=== PATIENT | female | born 1945 | race Hispanic/Latino ===

== ENCOUNTER 2017-06-25 11:43 | Inpatient (IN) | payer MEDICARE ==
[2017-06-25 12:31] LABS: Basophils % (Auto) 0.5 % (0.0-1.8); Eosinophils # (Auto) 0.2 K/mm3 (0.0-0.4); Eosinophils % (Auto) 1.7 % (0.0-4.3); Hemoglobin 17.1 gm/dl (10.1-14.3); Lymphocytes # (Auto) 0.9 K/mm3 (1.2-5.4); Lymphocytes % (Auto) 9.6 % (13.4-35.0); Mean Corpuscular HGB Conc 32 % (30-34); Mean Corpuscular Hemoglobin 35 pg (28-32); Mean Corpuscular Volume 107 fl (79-97); Monocytes # (Auto) 0.9 K/mm3 (0.0-0.8); Monocytes % (Auto) 10.1 % (0.0-7.3); Red Blood Count 4.94 M/mm3 (3.65-5.03); Red Cell Distribution Width 14.9 % (13.2-15.2)
[2017-06-25] MEDS ORDERED: DUONEB *Not for PRN Use IH ONE (12:36)
[2017-06-25] MEDS ORDERED: NACL 0.9% 1000 ML 1,000 ML IV ONE (12:37)
[2017-06-25] MEDS ORDERED: MAGNESIUM SULFATE 2GM/50ML 2 GM/50 ML BAG IV ONE (12:37)
[2017-06-25 13:06] LABS: Platelet Count 80 K/mm3 (140-440)
--- NOTE | 2017-06-25 13:13 | XRay Report ---
PORTABLE CHEST: SOB. An AP portable view of the chest demonstrates a normal cardiac contour considering the limits of this technique. The lungs are clear with no evidence of infiltrate, fluid or failure. IMPRESSION: Normal portable chest.
[2017-06-25 13:21] LABS: INR 1.06 (0.87-1.13)
[2017-06-25 13:22] LABS: Partial Thromboplastin Time 28.5 Sec. (24.2-36.6)
[2017-06-25 13:24] LABS: BUN/Creatinine Ratio 18; Blood Urea Nitrogen 9 mg/dL (7-17); Calcium 9.2 mg/dL (8.4-10.2); Hemolysis Index 31
[2017-06-25] MEDS ORDERED: LEVAQUIN 750MG/150ML 750 MG/150 ML BAG IV ONE (13:28)
[2017-06-25] MEDS ORDERED: NITRO-BID 2% TP ONE (13:41)
[2017-06-25] MEDS ORDERED: ROCEPHIN/NS 1 GM/50 ML 1 GM/50 ML BAG IV ONE (13:42)
--- NOTE | 2017-06-25 13:42 | Emergency Department Report ---
ED General Adult HPI - General Chief complaint: Dyspnea/Respdistress Stated complaint: PERICO/AMS Time Seen by Provider: 06/25/17 12:31 Source: patient, EMS Mode of arrival: Stretcher Limitations: No Limitations - History of Present Illness Initial comments: Patient arrives for evaluation of respiratory distress. She has a history of COPD and has had a previous admission at this facility in November 2016. She is a poor historian. However she is denying chest pain she is denying a history of heart failure I am not entirely certain but I think she is denying history of fever or chills. He has a history of a toxic encephalopathy and COPD the exacerbation on previous admissions with UTI. This may reflect this may be a similar presentation. As far as I can tell she is not on home O2. She does use home that treatments she is transported to this facility via EMS. She received Solu-Medrol and a neb in route but not magnesium sulfate. -: Gradual, unknown (unknown on a do not have a good history on this) Severity scale (0 -10): 0 Associated Symptoms: denies other symptoms Treatments Prior to Arrival: none - Related Data Previous Rx's Medication Instructions Recorded Last Taken Type Levofloxacin [Levaquin TAB] 500 mg PO QDAY #5 tablet 08/31/16 Unknown Rx Prednisone [predniSONE 10 mg 10 mg PO .TAPER #1 tab.ds.pk 08/31/16 Unknown Rx (6-Day Pack, 21 Tabs)] Allergies Allergy/AdvReac Type Severity Reaction Status Date / Time hydrocodone AdvReac Rash Verified 12/16/13 10:59 ED Review of Systems ROS: Stated complaint: PERICO/AMS Other details as noted in HPI Comment: Unobtainable due to pts medical conditions ED Past Medical Hx - Past Medical History Hx Hypertension: Yes Hx COPD: Yes Additional medical history: 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 Anemia - Surgical History Hx Cholecystectomy: Yes Additional Surgical History: Hysterectomy, nerve stimulator - Social History Smoking Status: Current Every Day Smoker Substance Use Type: None - Medications Home Medications: Home Medications Medication Instructions Recorded Confirmed Last Taken Type Levofloxacin [Levaquin TAB] 500 mg PO QDAY #5 tablet 08/31/16 Unknown Rx Prednisone [predniSONE 10 mg 10 mg PO .TAPER #1 tab.ds.pk 08/31/16 Unknown Rx (6-Day Pack, 21 Tabs)] ED Physical Exam - General Limitations: Physical Limitation General appearance: lethargic - Head Head exam: Present: atraumatic, normocephalic - Eye Eye exam: Absent: scleral icterus - ENT ENT exam: Present: mucous membranes dry - Neck Neck exam: Present: normal inspection. Absent: tenderness, meningismus - Respiratory Respiratory exam: Present: rhonchi, accessory muscle use - Cardiovascular Cardiovascular Exam: Present: regular rate, normal rhythm. Absent: systolic murmur, diastolic murmur, rubs, gallop - GI/Abdominal GI/Abdominal exam: Present: soft, normal bowel sounds. Absent: distended, tenderness, guarding, rebound, rigid - Extremities Exam Extremities exam: Present: normal inspection, normal capillary refill. Absent: tenderness, joint swelling, calf tenderness - Back Exam Back exam: Present: normal inspection - Neurological Exam Neurological exam: Present: other (no evident focal deficit) - Psychiatric Psychiatric exam: Present: anxious, flat affect - Skin Skin exam: Present: warm, dry, intact, other (somewhat sallow). Absent: rash ED Course Vital Signs 06/25/17 06/25/17 06/25/17 11:49 12:27 12:47 Temperature 98.5 F Pulse Rate 107 H Pulse Rate [ 84 Bilateral] Respiratory 47 H Rate Respiratory 16 Rate [Bilateral ] Blood Pressure 194/72 [Left] O2 Sat by Pulse 98 98 Oximetry 06/25/17 06/25/17 13:07 13:46 Temperature Pulse Rate 92 H Pulse Rate [ 82 Bilateral] Respiratory 20 Rate Respiratory 14 Rate [Bilateral ] Blood Pressure [Left] O2 Sat by Pulse 96 Oximetry - Reevaluation(s) Reevaluation #1: The patient had an inadequate response to nebulized treatment. An arterial blood gas showed hypercapnia. On reexamination, the patient was still wheezing. She still had increased work of breathing. I decided to place her on BiPAP. At this time she does not require intubation. However, she will require close observation. In addition finally her lactic acid level has come back and it is elevated. I had already given her empiric antibiotics i.e. Levaquin and ceftriaxone. She's had a previous UTI. However clinically she sounds like she possibly has pneumonia. Urinalysis is Pending. She will need a repeat blood gas and I presume ICU admission. 06/25/17 14:06 Reevaluation #2: Patient's respiratory distress seems disproportionate to her x-ray finding. She does have an elevated BNP and possibly cardiomyopathy however we have ordered a CTA to rule out pulmonary embolism and further delineate her pulmonary and cardiovascular status. 06/25/17 14:13 ED Medical Decision Making - Lab Data Result diagrams: 06/25/17 12:10 06/25/17 12:45 Laboratory Results - last 24 hr 06/25/17 06/25/17 06/25/17 12:10 12:45 12:45 WBC 9.0 RBC 4.94 Hgb 17.1 H Hct 53.0 H MCV 107 H MCH 35 H MCHC 32 RDW 14.9 Plt Count 80 L Lymph % (Auto) 9.6 L [place] % (Auto) 10.1 H Eos % (Auto) 1.7 Baso % (Auto) 0.5 Lymph # 0.9 L [place] # 0.9 H Eos # 0.2 Baso # 0.0 Seg Neutrophils % 78.1 H Seg Neutrophils # 7.0 PT 14.3 INR 1.06 APTT 28.5 POC ABG pH POC ABG pCO2 POC ABG pO2 POC ABG HCO3 POC ABG Total CO2 POC ABG O2 Sat POC ABG Base Excess FiO2 Sodium 140 Potassium 3.1 L Chloride 94.6 L Carbon Dioxide 27 Anion Gap 22 BUN 9 Creatinine 0.5 L Estimated GFR > 60 BUN/Creatinine Ratio 18 Glucose 117 H Calcium 9.2 06/25/17 12:59 WBC RBC Hgb Hct MCV MCH MCHC RDW Plt Count Lymph % (Auto) [place] % (Auto) Eos % (Auto) Baso % (Auto) Lymph # [place] # Eos # Baso # Seg Neutrophils % Seg Neutrophils # PT INR APTT POC ABG pH 7.391 POC ABG pCO2 49.3 H POC ABG pO2 57 L POC ABG HCO3 29.9 POC ABG Total CO2 31 POC ABG O2 Sat 88 POC ABG Base Excess 5 FiO2 32 Sodium Potassium Chloride Carbon Dioxide Anion Gap BUN Creatinine Estimated GFR BUN/Creatinine Ratio Glucose Calcium - EKG Data -: EKG Interpreted by Me EKG shows normal: sinus rhythm Rate: normal - EKG Data Interpretation: other (there is a lot of baseline waiver. However there is probably some diffuse ST depression. Left axis deviation/possible LAFB) - Radiology Data Radiology results: report reviewed interpreted by me: Chest x-ray no acute process, no cardiomegaly no signs of CHF no obvious infiltrate. Critical Care Time: Yes Critical care time in (mins) excluding proc time.: 60 Critical care attestation.: If time is entered above; I have spent that time in minutes in the direct care of this critically ill patient, excluding procedure time. ED Disposition Clinical Impression: Elevated lactic acid level, Hypokalemia, Elevated brain natriuretic peptide ( BNP) level Respiratory failure Qualifiers: Chronicity: acute on chronic Respiratory failure complication: hypercapnia Qualified Code(s): J96.22 - Acute and chronic respiratory failure with hypercapnia Disposition: DC09 OP ADMIT IP TO THIS HOSP Is pt being admited?: Yes Does the pt Need Aspirin: Yes Condition: Stable Referrals: MARNIE BENITEZ MD [Primary Care Provider] - 3-5 Days Time of Disposition: 14:14
--- NOTE | 2017-06-25 13:52 | History and Physical Report ---
History of Present Illness Chief complaint: Mom cant breathe and she's staring off into space History of present illness: 72 YO Female with COPD, Chronic Respiratory Failure on Home Oxygen, HTN, Nicotine Dependance presents to ED for evaluation. Pt is lethargic and confused and unable to give history, but history given by son who is at bedside during exam and interview. As per son, Pt has experienced confusion and shortness over kat[place] past 2 days with worsening symptoms over the past 8 hours. Pt has become more confused and unable to conduct activities of daily living. No reports of fever, chills, CP, Palpitations, NVD, Trauma, Seizures, Vertigo, loss of bowel/ bladder continence, sore throat, ill contacts, syncope, leg/calf swelling, recent prolonged car/air travel. Pt acknowledges daily continued smoking. Pt seen and evaluated in ED and found to have evidence of sepsis, and acute respiratory failure, and treated with sepsis protocol, and NIPPV. Pt admitted to ICU. Past History Past Medical History: COPD, other (respiratory faijlure, ) Past Surgical History: cholecystectomy, hysterectomy, Other (Nerve stimulator placement) Social history: , smoking Family history: hypertension Medications and Allergies Allergies Allergy/AdvReac Type Severity Reaction Status Date / Time hydrocodone AdvReac Rash Verified 12/16/13 10:59 Home Medications Medication Instructions Recorded Confirmed Last Taken Type Levofloxacin [Levaquin TAB] 500 mg PO QDAY #5 tablet 08/31/16 Unknown Rx Prednisone [predniSONE 10 mg 10 mg PO .TAPER #1 tab.ds.pk 08/31/16 Unknown Rx (6-Day Pack, 21 Tabs)] Active Meds: Active Medications Sodium Chloride (Nacl 0.9% 1000 Ml) 1,000 mls @ 125 mls/hr IV ONCE ONE Stop: 06/25/17 20:36 Last Admin: 06/25/17 12:55 Dose: 125 mls/hr Levofloxacin/Dextrose (Levaquin 750mg/150ml) 750 mg in 150 mls @ 100 mls/hr IV ONCE ONE PRN Reason: Protocol Stop: 06/25/17 14:57 Ceftriaxone Sodium (Rocephin/Ns 1 Gm/50 Ml) 1 gm in 50 mls @ 100 mls/hr IV ONCE ONE PRN Reason: Protocol Stop: 06/25/17 14:11 Review of Systems ROS unobtainable: due to mental status Exam - Constitutional Vitals: Temp Pulse Resp BP Pulse Ox 98.5 F 92 H 20 194/72 96 06/25/17 12:27 06/25/17 13:46 06/25/17 13:46 06/25/17 12:27 06/25/17 13:46 General appearance: Present: mild distress - EENT Eyes: Present: PERRL ENT: hearing intact - Neck Neck: Present: supple - Respiratory Respiratory effort: labored Respiratory: bilateral: diminished, rhonchi - Cardiovascular Rhythm: regular Heart Sounds: Present: S1 & S2 - Extremities Extremities: pulses symmetrical, No edema Peripheral Pulses: within normal limits - Abdominal General gastrointestinal: Present: soft, non-tender, non-distended, normal bowel sounds Female genitourinary: Present: normal - Integumentary Integumentary: Present: clear, dry, clammy, decreased turgor - Musculoskeletal Musculoskeletal: generalized weakness - Psychiatric Psychiatric: no intact judgment & insight, no memory intact - Neurologic Neurologic: no gait normal Results - Labs CBC & Chem 7: 06/25/17 12:10 06/25/17 12:45 Labs: Abnormal lab results 06/25/17 06/25/17 06/25/17 Range/Units 12:10 12:45 12:59 Hgb 17.1 H (10.1-14.3) gm/dl Hct 53.0 H (30.3-42.9) % MCV 107 H (79-97) fl MCH 35 H (28-32) pg Plt Count 80 L (140-440) K/mm3 Lymph % (Auto) 9.6 L (13.4-35.0) % [place] % (Auto) 10.1 H (0.0-7.3) % Lymph # 0.9 L (1.2-5.4) K/mm3 [place] # 0.9 H (0.0-0.8) K/mm3 Seg Neutrophils % 78.1 H (40.0-70.0) % POC ABG pCO2 49.3 H (35-45) POC ABG pO2 57 L (80-105) Potassium 3.1 L (3.6-5.0) mmol/L Chloride 94.6 L (98-107) mmol/L Creatinine 0.5 L (0.7-1.2) mg/dL Glucose 117 H (65-100) mg/dL Lactic Acid (0.7-2.0) mmol/L 06/25/17 Range/Units 13:04 Hgb (10.1-14.3) gm/dl Hct (30.3-42.9) % MCV (79-97) fl MCH (28-32) pg Plt Count (140-440) K/mm3 Lymph % (Auto) (13.4-35.0) % [place] % (Auto) (0.0-7.3) % Lymph # (1.2-5.4) K/mm3 [place] # (0.0-0.8) K/mm3 Seg Neutrophils % (40.0-70.0) % POC ABG pCO2 (35-45) POC ABG pO2 (80-105) Potassium (3.6-5.0) mmol/L Chloride (98-107) mmol/L Creatinine (0.7-1.2) mg/dL Glucose (65-100) mg/dL Lactic Acid 3.60 H* (0.7-2.0) mmol/L Assessment and Plan - Patient Problems (1) Sepsis Current Visit: Yes Status: Acute Qualifiers: Sepsis type: sepsis due to unspecified organism Qualified Code(s): A41.9 - Sepsis, unspecified organism Plan to address problem: IV Abx, IVF, Monitor uop q shift, blood cultures, Urinalysis, serial lactic acid , Chest X ray, supplemental oxygen, The high probability of a clinically significant, sudden or life threatening deterioration of the [Pulmonary, Cardiac, Endocrine] system(s) required my full and direct attention, intervention and personal management. The aggregate critical care time was [65] minutes. This time is in addition to time spent performing reported procedures but includes the following: [x] Data Review and interpretation [x] Patient assessment and monitoring of vital signs [x] Documentation [x] Medication orders and management (2) Acute respiratory failure Current Visit: No Status: Acute Qualifiers: Respiratory failure complication: hypoxia Qualified Code(s): J96.01 - Acute respiratory failure with hypoxia Plan to address problem: Supplemental oxygen, nebs, aspiration precautions, NIPPV, ABG, incentive spirometry, supportive care, IV abx, steroid therapy, CTA Chest, (3) Encephalopathy Current Visit: Yes Status: Acute Plan to address problem: CT head, neuro checks, treat respiratory failure, supplemental oxygen, Aspiratio precautions. (4) Lactic acidosis Current Visit: Yes Status: Acute Plan to address problem: IVF resuscitation, serial lactic acid, (5) Pneumonia Current Visit: Yes Status: Suspected Qualifiers: Laterality: left Lung location: lower lobe of lung Plan to address problem: IV abx, Supplemental oxygen, nebs, blood cultures, incentive spirometry, (6) DVT prophylaxis Current Visit: No Status: Acute
[2017-06-25] MEDS ORDERED: cefTRIAXone 1 GM in NACL 0.9% 20 ML IV ONE (14:00)
[2017-06-25] MEDS ORDERED: K-DUR PO ONE (14:00)
[2017-06-25 14:02] LABS: Creatine Kinase MB 2.8 ng/mL (0.0-4.0)
[2017-06-25 14:03] LABS: Albumin 3.9 g/dL (3.9-5); Bilirubin,Direct 0.3 mg/dL (0-0.2); Magnesium 1.9 mg/dL (1.7-2.3)
[2017-06-25] MEDS ORDERED: NACL 0.9% 1000 ML IV ONE (14:15)
[2017-06-25] MEDS ORDERED: DULCOLAX PR PRN (14:15)
[2017-06-25] MEDS ORDERED: ALUM-MAG HYDROX-SIMETH 200-200-20MG/5ML PO PRN (14:15)
[2017-06-25] MEDS ORDERED: BABY ASPIRIN PO ONE (14:16)
[2017-06-25] MEDS ORDERED: MILK OF MAGNESIA PO PRN (15:00)
--- NOTE | 2017-06-25 15:53 | Cat Scan Report ---
CTA chest: Respiratory distress. Pulmonary embolus protocol utilized. During IV contrast administration transverse images were obtained through the chest with coronal and sagittal reformatted images. A 3-D MIP image is also included. During administration of contrast extravasation into the arm occurred at the end of the injection. Our technologist estimated 30 cc. Patient was treated appropriately and the family given instructions for followup. Comparison exam is made to one in November 2013. The pulmonary arteries, veins, cardiac chambers, and thoracic aorta are relatively well opacified. No filling defects are identified in the pulmonary vessels. The central arterial structures are well opacified and the more peripheral structures are inconsistently opacified but there no filling defects suspicious for thrombus. The unopacified structures are unremarkable with normal contour and size of the thoracic aorta. There is significant mural calcification of the aorta. Several small nonspecific lymph nodes are present in the pretracheal and carinal regions. On the pulmonary windows there is stable scarring in the right apex. Small stable nodule is noted in the right apex. There is a 6.6 mm smooth, noncalcified pleural-based nodule is also posteriorly in the right upper lobe which is not previously identified however other nodules in a similar area are no longer present. There is a stable linear scar adjacent to the right middle fissure. A pleural-based lobulated density is also noted posteriorly on the left. Similar findings were present in multiple areas on the previous study but have resolved. Impressions: 1. No pulmonary embolus identified. 2. Bilateral small pleural based densities. In view similar findings on prior CT which have resolved these most likely are also benign. Followup CT in 4-6 months at your discretion.
[2017-06-25 16:33] LABS: Bilirubin,Urine NEG (Negative); Blood,Urine MOD (Negative); Color,Urine Yellow (Yellow); Mucus,Urine FEW /HPF; Nitrite,Urine NEG (Negative)
--- NOTE | 2017-06-25 16:38 | Consultation ---
History of Present Illness Consult date: 06/25/17 Requesting physician: MIKEY LAINEZ Reason for consult: other (Acute Hypoxemic Respiratory Failure) History of present illness: PULMONARY/CCM CONSULT NOTE (Full dictation # [id number]) Please see dictated notes for full details Past History Past Medical History: COPD, other (respiratory faijlure, ) Past Surgical History: cholecystectomy, hysterectomy, Other (Nerve stimulator placement) Social history: , smoking Family history: hypertension Medications and Allergies Allergies Allergy/AdvReac Type Severity Reaction Status Date / Time hydrocodone AdvReac Rash Verified 12/16/13 10:59 Home Medications Medication Instructions Recorded Confirmed Last Taken Type Levofloxacin [Levaquin TAB] 500 mg PO QDAY #5 tablet 08/31/16 Unknown Rx Prednisone [predniSONE 10 mg 10 mg PO .TAPER #1 tab.ds.pk 08/31/16 1 Day Ago Rx (6-Day Pack, 21 Tabs)] ~06/25/17 40 Simvastatin 40 mg PO DAILY 06/25/17 06/26/17 1 Day Ago History ~06/25/17 40 Losartan 25 mg PO DAILY 06/26/17 06/26/17 1 Day Ago History ~06/25/17 25mg Oxycodone HCl [oxyCODONE TAB] 20 mg PO Q4HR PRN 06/26/17 06/26/17 1 Day Ago History ~06/25/17 20 Xanax TAB 1 mg PO Q6HR 06/26/17 06/26/17 1 Day Ago History ~06/25/17 1mg cloNIDine [Catapres] 0.1 mg PO BID 06/26/17 06/26/17 1 Day Ago History ~06/25/17 0.1 Active Meds: Active Medications Al Hydrox/Mg Hydrox/Simethicone (Alum-Mag Hydrox-Simeth [phone]/5ml) 30 ml PO Q4H PRN PRN Reason: Indigestion Bisacodyl (Dulcolax) 10 mg [place] QDAY PRN PRN Reason: constipation unrelieved by MOM Sodium Chloride (Nacl 0.9% 1000 Ml) 1,000 mls @ 125 mls/hr IV ONCE ONE Stop: 06/25/17 20:36 Last Admin: 06/25/17 12:55 Dose: 125 mls/hr Azithromycin 500 mg/ Sodium (Chloride) 250 mls @ 250 mls/hr IV Q24HR LOLITA Ceftriaxone Sodium (Rocephin/Ns 2 Gm/100 Ml) 2 gm in 100 mls @ 200 mls/hr IV Q24HR LOLITA PRN Reason: Protocol Magnesium Hydroxide (Milk Of Magnesia) 30 ml PO Q4H PRN PRN Reason: Constipation Methylprednisolone Sodium Succinate (Solu-Medrol) 40 mg IV Q12HR [facility] Physical Examination Vital signs: Vital Signs Pulse Ox 98 06/25/17 11:49 Results - Laboratory Findings CBC and BMP: 06/25/17 12:10 06/25/17 12:45 ABG POC ABG pH 7.391 (7.35-7.45) 06/25/17 12:59 POC ABG pCO2 49.3 (35-45) H 06/25/17 12:59 POC ABG pO2 57 (80-105) L 06/25/17 12:59 POC ABG HCO3 29.9 06/25/17 12:59 POC ABG Total CO2 31 06/25/17 12:59 POC ABG O2 Sat 88 06/25/17 12:59 PT/INR, D-dimer PT 14.3 Sec. (12.2-14.9) 06/25/17 12:45 INR 1.06 (0.87-1.13) 06/25/17 12:45 Abnormal lab findings: Abnormal Labs 06/25/17 06/25/17 06/25/17 12:10 12:45 12:45 Hgb 17.1 H Hct 53.0 H MCV 107 H MCH 35 H Plt Count 80 L Lymph % (Auto) 9.6 L [place] % (Auto) 10.1 H Lymph # 0.9 L [place] # 0.9 H Seg Neutrophils % 78.1 H POC ABG pCO2 POC ABG pO2 Potassium 3.1 L Chloride 94.6 L Creatinine 0.5 L Glucose 117 H Lactic Acid Direct Bilirubin 0.3 H NT-Pro-B Natriuret Pep 3012 H 06/25/17 06/25/17 12:59 13:04 Hgb Hct MCV MCH Plt Count Lymph % (Auto) [place] % (Auto) Lymph # [place] # Seg Neutrophils % POC ABG pCO2 49.3 H POC ABG pO2 57 L Potassium Chloride Creatinine Glucose Lactic Acid 3.60 H* Direct Bilirubin NT-Pro-B Natriuret Pep
[2017-06-25] MEDS ORDERED: HABITROL TD ONE (23:27)
[2017-06-25] MEDS: ROXICODONE PO PRN (23:30)
[2017-06-25] MEDS: XANAX PO PRN (23:40)
[2017-06-26] MEDS ORDERED: NACL 0.9% 1000 ML 1,000 ML IV SCH (02:00)
[2017-06-26] MEDS: ROXICODONE PO PRN ×2 (09:21→16:46)
[2017-06-26] MEDS: PEPCID IV SCH (09:22)
[2017-06-26] MEDS ORDERED: ROCEPHIN/NS 2 GM/100 ML 2 GM/100 ML BAG IV SCH (10:00)
[2017-06-26] MEDS ORDERED: DUONEB *Not for PRN Use IH ONE (10:15)
[2017-06-26] MEDS: PULMICORT IH SCH ×2 (10:19→21:15)
[2017-06-26] MEDS: ZITHROMAX 500 MG in NACL 0.9% 250ML 250 ML IV SCH (11:20)
[2017-06-26 11:23] LABS: Hepatitis A Antibody IgM Non-Reactive (NonReactive); Hepatitis B Core IgM Non-Reactive (NonReactive); Hepatitis B Surface Antigen Non-Reactive (Negative); Hepatitis C Virus Antibody Non-Reactive (NonReactive)
[2017-06-26] MEDS ORDERED: Fluarix Quad 2017-2018(36 MOS+ IM ONE (12:00)
--- NOTE | 2017-06-26 12:30 | Progress Note ---
Assessment and Plan 72 YO Female with COPD, Chronic Respiratory Failure on Home Oxygen, Hypertension, Nicotine Dependance presents to ED for evaluation. Patient is lethargic and confused and unable to give history, but history given by son who is at bedside during exam and interview. As per son, Patient has experienced confusion and shortness over the past 2 days with worsening symptoms over the past 8 hours. Pt has become more confused and unable to conduct activities of daily living. No reports of fever, chills, CP, Palpitations, nausea, vomiting, diarrhea, Trauma, Seizures, Vertigo, loss of bowel/bladder continence, sore throat,sick contacts, syncope, leg/calf swelling, recent prolonged car/air travel. Patient acknowledges daily continued smoking. Patient seen and evaluated in ED and found to have evidence of sepsis, and acute respiratory failure, and treated with sepsis protocol, and NIPPV. Patient admitted to ICU. Patient was in hospice care Sepsis Acute on chronic hypoxemic respiratory failure COPD with acute exacerbation Tobacco abuse disorder Polycythemia probably secondary to chronic hypoxemia Metabolic alkalosis -Continue with antibiotics to complete course -NIPPV qhs and PRN -Supplemental oxygen to keep oxygen saturations>88%, oxygen restrictive strategies -Nicotine withdrawal precautions -VTE prophylaxis -Continue with bronchodilators -Steroids -Smoking cessation counselling at the bedside -Nutritional support -PT/OT/mobility -Discontinue rachel catheter Patient and her son were updated at the bedside re care plan - Subjective Date of service: 06/26/17 Interval history: Seen and examined. Vitals, labs, medications, chart reviewed. Doing better this morning. Wants to go home. Her son who lives with her is at the bedside. Denies any chills, no fevers, no abdominal pain, no nausea or vomiting. Has ongoing cough and baseline shortness of breath. Discussed in interdisciplinary rounds Objective Vital Signs - 12hr 06/26/17 06/26/17 06/26/17 00:40 00:50 00:51 Temperature Pulse Rate 96 H 102 H Pulse Rate [ Bilateral] Pulse Rate [ Throughout] Respiratory 34 H 22 24 Rate Respiratory Rate [Bilateral ] Respiratory Rate [ Throughout] Blood Pressure 200/76 200/76 O2 Sat by Pulse 95 92 97 Oximetry 06/26/17 06/26/17 06/26/17 01:00 01:10 01:20 Temperature Pulse Rate 107 H 101 H 67 Pulse Rate [ Bilateral] Pulse Rate [ Throughout] Respiratory 38 H 32 H 24 Rate Respiratory Rate [Bilateral ] Respiratory Rate [ Throughout] Blood Pressure 200/76 192/78 192/78 O2 Sat by Pulse 83 L 94 97 Oximetry 06/26/17 06/26/17 06/26/17 01:30 01:40 01:50 Temperature Pulse Rate 85 79 68 Pulse Rate [ Bilateral] Pulse Rate [ Throughout] Respiratory 24 25 H 25 H Rate Respiratory Rate [Bilateral ] Respiratory Rate [ Throughout] Blood Pressure 192/78 192/78 192/78 O2 Sat by Pulse 97 97 96 Oximetry 06/26/17 06/26/17 06/26/17 02:00 02:10 02:20 Temperature Pulse Rate 101 H 108 H 70 Pulse Rate [ Bilateral] Pulse Rate [ Throughout] Respiratory 36 H 38 H 24 Rate Respiratory Rate [Bilateral ] Respiratory Rate [ Throughout] Blood Pressure 192/78 164/85 164/85 O2 Sat by Pulse 96 97 96 Oximetry 06/26/17 06/26/17 06/26/17 02:30 02:40 02:50 Temperature Pulse Rate 102 H 102 H 109 H Pulse Rate [ Bilateral] Pulse Rate [ Throughout] Respiratory 27 H 27 H 36 H Rate Respiratory Rate [Bilateral ] Respiratory Rate [ Throughout] Blood Pressure 164/85 164/85 164/85 O2 Sat by Pulse 96 97 97 Oximetry 06/26/17 06/26/17 06/26/17 03:00 03:10 03:20 Temperature Pulse Rate 107 H 107 H 92 H Pulse Rate [ Bilateral] Pulse Rate [ Throughout] Respiratory 28 H 26 H 27 H Rate Respiratory Rate [Bilateral ] Respiratory Rate [ Throughout] Blood Pressure 164/85 154/88 154/88 O2 Sat by Pulse 94 96 96 Oximetry 06/26/17 06/26/17 06/26/17 03:30 03:40 03:50 Temperature Pulse Rate 97 H 120 H 115 H Pulse Rate [ Bilateral] Pulse Rate [ Throughout] Respiratory 25 H 34 H 34 H Rate Respiratory Rate [Bilateral ] Respiratory Rate [ Throughout] Blood Pressure 154/88 154/88 154/88 O2 Sat by Pulse 96 94 95 Oximetry 06/26/17 06/26/17 06/26/17 04:00 04:10 04:20 Temperature 98.6 F Pulse Rate 110 H 110 H 101 H Pulse Rate [ Bilateral] Pulse Rate [ Throughout] Respiratory 28 H 16 24 Rate Respiratory Rate [Bilateral ] Respiratory Rate [ Throughout] Blood Pressure 154/88 151/85 151/85 O2 Sat by Pulse 96 96 96 Oximetry 06/26/17 06/26/17 06/26/17 04:30 04:40 04:50 Temperature Pulse Rate 106 H 97 H 114 H Pulse Rate [ Bilateral] Pulse Rate [ Throughout] Respiratory 24 25 H 36 H Rate Respiratory Rate [Bilateral ] Respiratory Rate [ Throughout] Blood Pressure 151/85 151/85 151/85 O2 Sat by Pulse 96 96 95 Oximetry 06/26/17 06/26/17 06/26/17 04:51 05:00 05:10 Temperature Pulse Rate 114 H 119 H Pulse Rate [ Bilateral] Pulse Rate [ Throughout] Respiratory 31 H 37 H 39 H Rate Respiratory Rate [Bilateral ] Respiratory Rate [ Throughout] Blood Pressure 151/85 108/72 O2 Sat by Pulse 99 91 96 Oximetry 06/26/17 06/26/17 06/26/17 05:20 05:30 05:40 Temperature Pulse Rate 124 H 101 H 121 H Pulse Rate [ Bilateral] Pulse Rate [ Throughout] Respiratory 38 H 37 H 39 H Rate Respiratory Rate [Bilateral ] Respiratory Rate [ Throughout] Blood Pressure 108/72 108/72 108/72 O2 Sat by Pulse 91 91 92 Oximetry 06/26/17 06/26/17 06/26/17 05:50 06:00 06:10 Temperature Pulse Rate 109 H 120 H 116 H Pulse Rate [ Bilateral] Pulse Rate [ Throughout] Respiratory 22 37 H 37 H Rate Respiratory Rate [Bilateral ] Respiratory Rate [ Throughout] Blood Pressure 108/72 132/80 108/72 O2 Sat by Pulse 91 92 91 Oximetry 06/26/17 06/26/17 10:21 10:27 Temperature 98.3 F Pulse Rate Pulse Rate [ 118 H Bilateral] Pulse Rate [ 121 H Throughout] Respiratory Rate Respiratory 22 Rate [Bilateral ] Respiratory 28 H Rate [ Throughout] Blood Pressure O2 Sat by Pulse Oximetry Constitutional: other (chronically ill looking, mild respiratory distress) Eyes: non-icteric ENT: oropharynx moist Neck: supple, no lymphadenopathy, no JVD Effort: mildly labored Ascultation: Bilateral: diminished breath sounds Cardiovascular: regular rate and rhythm, other (s1,s2, ) Gastrointestinal: normoactive bowel sounds, soft, non-tender, non-distended Integumentary: normal Extremities: no cyanosis, no edema, no ischemia or petechiae Neurologic: normal mental status, non-focal exam, CN II-XII normal Psychiatric: mood appropriate, affect normal CBC and BMP: 06/27/17 08:20 06/27/17 08:20 ABG, PT/INR, D-dimer: ABG POC ABG pH 7.391 (7.35-7.45) 06/25/17 12:59 POC ABG pCO2 49.3 (35-45) H 06/25/17 12:59 POC ABG pO2 57 (80-105) L 06/25/17 12:59 POC ABG HCO3 29.9 06/25/17 12:59 POC ABG Total CO2 31 06/25/17 12:59 POC ABG O2 Sat 88 06/25/17 12:59 PT/INR, D-dimer PT 14.3 Sec. (12.2-14.9) 06/25/17 12:45 INR 1.06 (0.87-1.13) 06/25/17 12:45 D-Dimer 1423.50 ng/mlDDU (0-234) H 06/26/17 08:15 Abnormal lab findings: Abnormal Labs 06/25/17 06/25/17 06/25/17 12:10 12:45 12:45 Hgb 17.1 H Hct 53.0 H MCV 107 H MCH 35 H Plt Count 80 L Lymph % (Auto) 9.6 L [place] % (Auto) 10.1 H Lymph # 0.9 L [place] # 0.9 H Seg Neutrophils % 78.1 H D-Dimer POC ABG pCO2 POC ABG pO2 Potassium 3.1 L Chloride 94.6 L Creatinine 0.5 L Glucose 117 H Lactic Acid Direct Bilirubin 0.3 H C-Reactive Protein NT-Pro-B Natriuret Pep 3012 H 06/25/17 06/25/17 06/25/17 12:59 13:04 17:54 Hgb Hct MCV MCH Plt Count Lymph % (Auto) [place] % (Auto) Lymph # [place] # Seg Neutrophils % D-Dimer POC ABG pCO2 49.3 H POC ABG pO2 57 L Potassium Chloride Creatinine Glucose Lactic Acid 3.60 H* 3.10 H* Direct Bilirubin C-Reactive Protein NT-Pro-B Natriuret Pep 06/25/17 06/26/17 06/26/17 20:37 08:15 08:15 Hgb Hct MCV MCH Plt Count Lymph % (Auto) [place] % (Auto) Lymph # [place] # Seg Neutrophils % D-Dimer 1423.50 H POC ABG pCO2 POC ABG pO2 Potassium Chloride Creatinine Glucose Lactic Acid 2.40 H* Direct Bilirubin C-Reactive Protein 6.60 H NT-Pro-B Natriuret Pep Chest x-ray: image reviewed Allied health notes reviewed: RT ED Critical Care Note - Critical Care Note Total Time (mins): 35
--- NOTE | 2017-06-26 13:34 | Progress Note ---
Assessment and Plan Assessment and plan: 72 YO Female with COPD, Chronic Respiratory Failure on Home Oxygen, HTN, Nicotine Dependance presents to ED for evaluation and admitted with sepsis syndrom and AMS, the later which has now improved. Acute on Chronic Hypoxemic Respiratory failure COPD with Acute exacerbation Sepsis secondary to viral etiology Viral bronchitis Metabolic Encephalopathy -Now resolved DM lactic acidosis. Hypokalemia Plan: * Continue current therapy, adjust insulin for better glycemic control * Discontinue Abx if no fever in 1-2 days * Taper steroids per improvement * Replace electrolyte * Oxygen per protocol * Discontinue based on expectation * DVT PROPH * I saw and evaluated the patient. I agree with the findings and the plan of care as documented in the Nurse Practitioner's~note, with the following corrections and additions. . History Interval history: Patient seen and examined, still in respiratory distress, unable to complete her sentence without stopping to take a breath. she denies chest pain, nausea, vomiting. she is requesting to go home in am Hospitalist Physical - Constitutional Vitals: Temp Pulse Resp BP Pulse Ox 99.8 F H 118 H 22 108/72 91 06/26/17 13:11 06/26/17 10:21 06/26/17 10:21 06/26/17 06:10 06/26/17 06:10 General appearance: Present: other (moderate distress) - EENT Eyes: Present: PERRL, EOM intact ENT: hearing intact, clear oral mucosa - Neck Neck: Present: supple, normal ROM - Respiratory Respiratory effort: labored, pursed lips Respiratory: bilateral: diminished, wheezing (expiratory) - Cardiovascular Rhythm: regular Heart Sounds: Present: S1 & S2 (tachy) - Extremities Extremities: no ischemia, pulses intact, Full ROM Peripheral Pulses: within normal limits - Abdominal General gastrointestinal: soft, non-tender, non-distended - Integumentary Integumentary: Present: clear, warm, dry - Psychiatric Psychiatric: appropriate mood/affect, other (anxious) - Neurologic Neurologic: CNII-XII intact Results - Labs CBC & Chem 7: 06/25/17 12:10 06/25/17 12:45 Labs: Laboratory Last Values WBC 9.0 K/mm3 (4.5-11.0) 06/25/17 12:10 RBC 4.94 M/mm3 (3.65-5.03) 06/25/17 12:10 Hgb 17.1 gm/dl (10.1-14.3) H 06/25/17 12:10 Hct 53.0 % (30.3-42.9) H 06/25/17 12:10 MCV 107 fl (79-97) H 06/25/17 12:10 MCH 35 pg (28-32) H 06/25/17 12:10 MCHC 32 % (30-34) 06/25/17 12:10 RDW 14.9 % (13.2-15.2) 06/25/17 12:10 Plt Count 80 K/mm3 (140-440) L 06/25/17 12:10 Lymph % (Auto) 9.6 % (13.4-35.0) L 06/25/17 12:10 [place] % (Auto) 10.1 % (0.0-7.3) H 06/25/17 12:10 Eos % (Auto) 1.7 % (0.0-4.3) 06/25/17 12:10 Baso % (Auto) 0.5 % (0.0-1.8) 06/25/17 12:10 Lymph # 0.9 K/mm3 (1.2-5.4) L 06/25/17 12:10 [place] # 0.9 K/mm3 (0.0-0.8) H 06/25/17 12:10 Eos # 0.2 K/mm3 (0.0-0.4) 06/25/17 12:10 Baso # 0.0 K/mm3 (0.0-0.1) 06/25/17 12:10 Seg Neutrophils % 78.1 % (40.0-70.0) H 06/25/17 12:10 Seg Neutrophils # 7.0 K/mm3 (1.8-7.7) 06/25/17 12:10 PT 14.3 Sec. (12.2-14.9) 06/25/17 12:45 INR 1.06 (0.87-1.13) 06/25/17 12:45 APTT 28.5 Sec. (24.2-36.6) 06/25/17 12:45 D-Dimer 1423.50 ng/mlDDU (0-234) H 06/26/17 08:15 POC ABG pH 7.391 (7.35-7.45) 06/25/17 12:59 POC ABG pCO2 49.3 (35-45) H 06/25/17 12:59 POC ABG pO2 57 (80-105) L 06/25/17 12:59 POC ABG HCO3 29.9 06/25/17 12:59 POC ABG Total CO2 31 06/25/17 12:59 POC ABG O2 Sat 88 06/25/17 12:59 POC ABG Base Excess 5 06/25/17 12:59 FiO2 32 % 06/25/17 12:59 Sodium 140 mmol/L (137-145) 06/25/17 12:45 Potassium 3.1 mmol/L (3.6-5.0) L 06/25/17 12:45 Chloride 94.6 mmol/L (98-107) L 06/25/17 12:45 Carbon Dioxide 27 mmol/L (22-30) 06/25/17 12:45 Anion Gap 22 mmol/L 06/25/17 12:45 BUN 9 mg/dL (7-17) 06/25/17 12:45 Creatinine 0.5 mg/dL (0.7-1.2) L 06/25/17 12:45 Estimated GFR > 60 ml/min 06/25/17 12:45 BUN/Creatinine Ratio 18 % 06/25/17 12:45 Glucose 117 mg/dL (65-100) H 06/25/17 12:45 Lactic Acid 2.40 mmol/L (0.7-2.0) H* 06/25/17 20:37 Calcium 9.2 mg/dL (8.4-10.2) 06/25/17 12:45 Magnesium 1.90 mg/dL (1.7-2.3) 06/25/17 12:45 Total Bilirubin 0.80 mg/dL (0.1-1.2) 06/25/17 12:45 Direct Bilirubin 0.3 mg/dL (0-0.2) H 06/25/17 12:45 Indirect Bilirubin 0.5 mg/dL 06/25/17 12:45 AST 21 units/L (5-40) 06/25/17 12:45 ALT 11 units/L (7-56) 06/25/17 12:45 Alkaline Phosphatase 75 units/L (35-129) 06/25/17 12:45 Total Creatine Kinase 99 units/L (30-135) 06/25/17 12:45 CK-MB (CK-2) 2.8 ng/mL (0.0-4.0) 06/25/17 12:45 CK-MB (CK-2) Rel Index 2.8 (0-4) 06/25/17 12:45 Troponin T 0.016 ng/mL (0.00-0.029) 06/25/17 12:45 C-Reactive Protein 6.60 mg/dL (0.00-1.30) H 06/26/17 08:15 NT-Pro-B Natriuret Pep 3012 pg/mL (0-900) H 06/25/17 12:45 Total Protein 6.4 g/dL (6.3-8.2) 06/25/17 12:45 Albumin 3.9 g/dL (3.9-5) 06/25/17 12:45 Albumin/Globulin Ratio 1.6 % 06/25/17 12:45 Urine Color Yellow (Yellow) 06/25/17 15:54 Urine Turbidity Clear (Clear) 06/25/17 15:54 Urine pH 6.0 (5.0-7.0) 06/25/17 15:54 Ur Specific [place] 1.018 (1.003-1.030) 06/25/17 15:54 Urine Protein 30 mg/dl mg/dL (Negative) 06/25/17 15:54 Urine Glucose (UA) Neg mg/dL (Negative) 06/25/17 15:54 Urine Ketones Neg mg/dL (Negative) 06/25/17 15:54 Urine Blood Mod (Negative) 06/25/17 15:54 Urine Nitrite Neg (Negative) 06/25/17 15:54 Urine Bilirubin Neg (Negative) 06/25/17 15:54 Urine Urobilinogen 2.0 mg/dL (<2.0) 06/25/17 15:54 Ur Leukocyte Esterase Neg (Negative) 06/25/17 15:54 Urine WBC (Auto) 3.0 /HPF (0.0-6.0) 06/25/17 15:54 Urine RBC (Auto) 2.0 /HPF (0.0-6.0) 06/25/17 15:54 U Epithel Cells (Auto) < 1.0 /HPF (0-13.0) 06/25/17 15:54 Urine Mucus Few /HPF 06/25/17 15:54 Hepatitis A IgM Ab Non-reactive (NonReactive) 06/26/17 08:15 Hep Bs Antigen Non-reactive (Negative) 06/26/17 08:15 Hep B Core IgM Ab Non-reactive (NonReactive) 06/26/17 08:15 Hepatitis C Antibody Non-reactive (NonReactive) 06/26/17 08:15 Blood Type O POSITIVE 06/25/17 14:35 Antibody Screen Negative 06/25/17 14:35 - Imaging and Cardiology Chest x-ray: image reviewed (copd)
--- NOTE | 2017-06-26 14:29 | Consultation ---
PULMONARY CRITICAL CARE CONSULT NOTE CONSULTING PHYSICIAN: Dr. Carlson and Dr. Taylor. REASON FOR CONSULTATION: [id number] hypoxemic respiratory failure. CHIEF COMPLAINT AND HISTORY OF PRESENT ILLNESS: The patient is a 72-year-old female with past medical history indeed significant both for a diagnosis of chronic obstructive lung disease, apparently home oxygen dependent per her sons, who gave me most of the history, but also a 30 plus pack year tobacco smoking history and who continues to smoke. According to the son, he came down with flu-like symptoms in the past week. He noticed that his mother has shown increasing shortness of breath, increasing cough with expectoration of yellowish phlegm. This is more than usual. Then, she began to desaturate in the last 24-48 hours. According to her, she used her oxygen and used some photography assistant from her neighbor, I believe, she used her neighbor's oxygen too to supplement, but they got her O2 sats above 90% for a short while. On the day of admission, the O2 sats began to drop below 90s. She complained of increasing chest tightness. So she was brought into the hospital. She does use nebulizer treatments at home. She has been using them; however, they have not been effective. In the ER, she was found to indeed be significantly short of breath and has been on continuous bilevel positive air pressure ventilation therapy since. When I stopped by to see her, she remained on the BiPAP machine. Her breathing was still labored. She was tachypneic. The chest pain was a little bit better. She was actually beginning to ask for the BiPAP machine to be taken off. I believe her son said that she did have an episode of vomiting at home. They are unsure about overt aspiration. The patient states she is up-to-date on her pneumonia shot, but did not get her flu shot yet this year. That is her most of the history of presentation as I have. I should mention she denies any new onset leg pain or swelling either laterally or bilaterally or any history of venous thromboembolic phenomenon except she states she had a clot in her heart, she thinks but the son was not sure if she has had a PE before. PAST MEDICAL HISTORY: Again, significant for COPD, home oxygen dependent, hypertension, tobacco use disorder. She mentioned that she had a clot in her aorta. PAST SURGICAL HISTORY: She has had a hysterectomy. She has had a cholecystectomy and she has had what she described as a nerve stimulator implanted. I believe she also has a history of chronic back pain. MEDICATIONS: She was on at the time I stopped by to see were reviewed. Pertinent medications included the following: Azithromycin 500 mg IV daily, Rocephin, she received a 1 g dose and was ordered, I believe, 1 g IV. Also was given Levaquin 750 mg IV x 1. Solu-Medrol 40 mg IV q. 12 hours. Nicotine 14 mg per day patch had been ordered and oxycodone 20 mg p.o. q. 4 hours p.r.n. moderate pain. ALLERGIES: HYDROCODONE, nature of this allergy is unknown. DIET: Well-built, slightly obese lady, denies acute weight loss or gain in the preceding few weeks to months. FAMILY AND SOCIAL HISTORY: Lives in the community, 30 plus pack year tobacco smoker. Denies alcohol or illicit drug use or abuse. She does have prescriptions for holding Xanax. Family history otherwise noncontributory. REVIEW OF SYSTEMS: She denies loss of consciousness. No new onset seizures. No new onset focal weakness. No gross hematochezia or melena. No gross hematuria or dysuria. No hematemesis. She did have the vomiting at home. No palpitations. She has some chest tightness. No chest pain. Complete 13 systems review of systems obtained. Pertinent positives and/or negatives as in body of history above, otherwise they are noncontributory. PHYSICAL EXAMINATION: VITAL SIGNS: At presentation in the Emergency Room, review of the vital signs shows that she was afebrile, temperature 98.5 degrees Fahrenheit with a pulse of 107, respiratory rate of 47, blood pressure 194/72, oxygen sats were 98%. Inspired oxygen concentration was not recorded. At the time I saw her, she was on the BiPAP machine. She was on IPAP 10, EPAP 5 on 50% FiO2 at that time. GENERAL: Shows an elderly looking female, looks her stated age, on the BiPAP machine, but still with moderately increased work of breathing. She is normocephalic and atraumatic. HEAD, EYES, EARS, NOSE AND THROAT: She is anicteric. No conjunctival erythema. No gross jugular venous distention, no palpable thyromegaly grossly, no palpable lymph nodes in the supraclavicular or submandibular lymph node chains. LUNGS: Auscultation of both lung mejía revealed bilateral expiratory wheezes and rhonchi, prolonged expiratory phase, diminished overall bilateral breath sounds. HEART: Heart sounds 1 and 2 are heard. They were regular in rate and rhythm at the time of my evaluation. No rubs, no murmurs were heard over the rhonchi. ABDOMEN: Soft. Bowel sounds are positive, nontender, no palpable hepatosplenomegaly. EXTREMITIES: Without overt digital clubbing, no cyanosis, no pedal edema. She was slightly tender to touch, though in both lower extremities. Dorsalis pedal pulses were palpable bilaterally. NEUROLOGIC: Pupils were equal, round, about 3 mm, reactive to light. Extraocular muscle movements appeared intact. She moved all 4 extremities spontaneously. Mood was appropriate. Affect was anxious. SKIN: Was of normal turgor, no tenting, no rash, no cellulitis. LABORATORY DATA: From my review are as follows: White cell count 9000, hemoglobin 17.1, hematocrit 53.0, platelet count of 80. INR 1.06. Arterial blood gas showed a pH of 7.39, pCO2 of 49, pO2 of 57 that was on 3 liters nasal cannula. Serum sodium was 140, potassium 3.1, chloride 95, bicarb 27, BUN 9, creatinine 0.5, glucose was 117. Lactic acid level was 3.6. Liver function tests essentially within normal limits. BNP was elevated at 3012. Urinalysis was negative for nitrites and leukocyte esterase. No bacteria. MICROBIOLOGY: Blood cultures have been sent to the lab. No growth to date. IMAGING: Had been done. Chest x-ray was done. I had review of the chest x-ray. I also reviewed a chest x-ray. If you take hyperinflation into context, there may be an element of cardiomegaly. Increased interstitial markings appear chronic. If at all mild interstitial edema, there is no blunting of the costophrenic angles. The CT angio was also reviewed the contrast timing in administration was inadequate and in my opinion, I really cannot make much out of this CT angio except to say no gross central filling defects. The right hilar region may have a defect, but I think that is more likely hilar lymphadenopathy. The lung windows show some subcentimeter nodules, a lot of breathing artifact really obscures the interpretation. She does not have overt bullous emphysema. ASSESSMENT AND PLAN: 1. Acute on chronic hypoxemic respiratory failure. 2. Acute exacerbation of chronic obstructive lung disease. 3. Sepsis syndrome with elevated lactic acid. 4. Tobacco use disorder. 5. History of hypertension. 6. Anxiety disorder. 7. Mild encephalopathy, acute at presentation. 8. Possible viral syndrome. 9. Hypokalemia. PLAN: 1. Continue continuous noninvasive ventilation. Hopefully she tolerates this and turns around. If she fails this, she is at this point, a full code and will be intubated. We will continue bronchodilator therapy; however, I will also add long-acting bronchodilators as well as inhaled corticosteroids. We will continue systemic steroid therapy. Empiric antibiotic therapy will be continued. I will get a CRP level and trend along with lactic acid level as necessary. I will recommend IV hydration at this point despite the elevated lactic acid level while keeping a close eye on her volume status and watching for pulmonary edema. The last 2D echocardiogram, I see here is from 2013. It showed normal ejection fraction of 65% at that time without significant pulmonary hypertension. It was a poor film. I will order a 2D echocardiogram to better understand her cardiac function, especially in the light of her equivocal volume status. Elevated hemoglobin does suggest to me some element of dehydration/intravascular volume depletion. We will replace potassium. She will be placed on GI and DVT prophylaxis. I will get a D-dimer level and because of the equivocal CT angio bilateral lower extremity Dopplers will also be ordered. Consideration will be given for a V/Q scanning depending on the results of the above-mentioned tests. Again, she will be placed on GI prophylaxis. DVT prophylaxis in the short term will be SCDs once we have ruled out DVTs. Thrombocytopenia is noted. I will order hepatitis panel. Flu and pneumonia vaccination will be per protocol. Thank you very much for the consult. We will follow along and make further recommendations as picture progresses/becomes clearer. Indeed, she is critically ill on life-sustaining interventions including continuous noninvasive ventilation therapy, but also at high risk for further deterioration including . I should mention that cardiac enzymes were drawn and they are negative. JOB# [id number] NIKOLE/APRIL
[2017-06-26] MEDS: cefTRIAXone 2 GM in NACL 0.9% 20 ML IV SCH (15:14)
[2017-06-26] MEDS: BROVANA NEBU IH SCH ×2 (17:00→21:15)
[2017-06-26] MEDS ORDERED: K-DUR PO ONE (21:43)
[2017-06-26] MEDS: HABITROL TD SCH (22:00)
[2017-06-26] MEDS ORDERED: LASIX IV ONE (23:00)
[2017-06-26] MEDS: KCL 10MEQ/100ML 10 MEQ/100 ML BAG IV SCH (23:54)
[2017-06-27] MEDS: XANAX PO PRN ×2 (00:49→10:11)
[2017-06-27] MEDS: ROXICODONE PO PRN (00:50)
[2017-06-27] MEDS: KCL 10MEQ/100ML 10 MEQ/100 ML BAG IV SCH (02:37)
[2017-06-27] MEDS ORDERED: CATAPRES PO ONE (03:05)
[2017-06-27] MEDS: BROVANA NEBU IH SCH ×2 (07:02→19:59)
[2017-06-27] MEDS: PULMICORT IH SCH ×2 (07:02→19:59)
[2017-06-27 08:50] LABS: BUN/Creatinine Ratio 32; Blood Urea Nitrogen 16 mg/dL (7-17); Calcium 9.4 mg/dL (8.4-10.2); Hemoglobin 18.5 gm/dl (10.1-14.3); Hemolysis Index 14; Mean Corpuscular HGB Conc 33 % (30-34); Mean Corpuscular Hemoglobin 35 pg (28-32); Mean Corpuscular Volume 105 fl (79-97); Platelet Count 160 K/mm3 (140-440); Red Blood Count 5.38 M/mm3 (3.65-5.03); Red Cell Distribution Width 14.3 % (13.2-15.2)
[2017-06-27 09:01] LABS: Hematocrit 56.2 % (30.3-42.9)
[2017-06-27] MEDS ORDERED: OXYCODONE HCL 20 MG PO PRN (09:43)
[2017-06-27] MEDS ORDERED: NON-FORMULARY (Simvastatin 40 MG) PO SCH (10:00)
[2017-06-27] MEDS: CATAPRES PO SCH ×3 (10:10→22:10)
[2017-06-27] MEDS: PEPCID IV SCH (10:11)
[2017-06-27] MEDS: ZITHROMAX 500 MG in NACL 0.9% 250ML 250 ML IV SCH (10:12)
--- NOTE | 2017-06-27 10:34 | Progress Note ---
Assessment and Plan 72 YO Female with COPD, Chronic Respiratory Failure on Home Oxygen, HTN, Nicotine Dependance presents to ED for evaluation. Pt is lethargic and confused and unable to give history, but history given by son who is at bedside during exam and interview. As per son, Pt has experienced confusion and shortness over kat[place] past 2 days with worsening symptoms over the past 8 hours. Pt has become more confused and unable to conduct activities of daily living. No reports of fever, chills, CP, Palpitations, NVD, Trauma, Seizures, Vertigo, loss of bowel/ bladder continence, sore throat, ill contacts, syncope, leg/calf swelling, recent prolonged car/air travel. Pt acknowledges daily continued smoking. Pt seen and evaluated in ED and found to have evidence of sepsis, and acute respiratory failure, and treated with sepsis protocol, and NIPPV. Pt admitted to ICU. DIAGNOSIS Sepsis Acute on chronic hypoxemic respiratory failure COPD with acute exacerbation Tobacco abuse disorder Acute on Chronic Hypoxemic Respiratory failure COPD with Acute exacerbation Metabolic Encephalopathy -Now resolved DM lactic acidosis. Hypokalemia PLAN -discontinue rachle catheter -continue with current medications -supplemental oxygen -oxygen safety discussed -smoking cessation counselling done -discharge home with hospice - Subjective Date of service: 06/27/17 Interval history: Seen and examined. Vitals, labs, medications, chart reviewed. Had hypertension with some worsening shortness of breath over night. Treated with one dose of furosemide and clonidine, improved. Doing well this morning. Wants to go home. Denies any chills, no fevers, no abdominal pain, no nausea or vomiting. Has ongoing cough and baseline shortness of breath. Discussed in interdisciplinary rounds Objective Vital Signs - 12hr 06/26/17 06/26/17 06/26/17 22:40 22:50 23:00 Temperature Pulse Rate 87 104 H 102 H Pulse Rate [ From Monitor] Pulse Rate [ Left Dorsalis Pedis] Pulse Rate [ Left Radial] Pulse Rate [ Right Dorsalis Pedis] Pulse Rate [ Right Radial] Pulse Rate [ Throughout] Respiratory 20 22 23 Rate Respiratory Rate [ Throughout] Blood Pressure 171/85 171/85 187/93 O2 Sat by Pulse 93 95 94 Oximetry 06/26/17 06/26/17 06/26/17 23:10 23:20 23:30 Temperature Pulse Rate 111 H 101 H 109 H Pulse Rate [ From Monitor] Pulse Rate [ Left Dorsalis Pedis] Pulse Rate [ Left Radial] Pulse Rate [ Right Dorsalis Pedis] Pulse Rate [ Right Radial] Pulse Rate [ Throughout] Respiratory 23 22 23 Rate Respiratory Rate [ Throughout] Blood Pressure 187/93 187/93 187/93 O2 Sat by Pulse 94 95 94 Oximetry 06/26/17 06/26/17 06/27/17 23:40 23:50 00:00 Temperature 97.8 F Pulse Rate 114 H 110 H 112 H Pulse Rate [ 108 H From Monitor] Pulse Rate [ 108 H Left Dorsalis Pedis] Pulse Rate [ 108 H Left Radial] Pulse Rate [ 108 H Right Dorsalis Pedis] Pulse Rate [ 108 H Right Radial] Pulse Rate [ Throughout] Respiratory 22 27 H 23 Rate Respiratory Rate [ Throughout] Blood Pressure 187/93 187/93 187/93 O2 Sat by Pulse 94 95 95 Oximetry 06/27/17 06/27/17 06/27/17 00:10 00:20 00:30 Temperature Pulse Rate 118 H 131 H 117 H Pulse Rate [ From Monitor] Pulse Rate [ Left Dorsalis Pedis] Pulse Rate [ Left Radial] Pulse Rate [ Right Dorsalis Pedis] Pulse Rate [ Right Radial] Pulse Rate [ Throughout] Respiratory 23 29 H 30 H Rate Respiratory Rate [ Throughout] Blood Pressure 177/98 177/98 177/98 O2 Sat by Pulse 93 94 95 Oximetry 06/27/17 06/27/17 06/27/17 00:40 00:50 01:00 Temperature Pulse Rate 136 H 125 H 117 H Pulse Rate [ From Monitor] Pulse Rate [ Left Dorsalis Pedis] Pulse Rate [ Left Radial] Pulse Rate [ Right Dorsalis Pedis] Pulse Rate [ Right Radial] Pulse Rate [ Throughout] Respiratory 27 H 28 H 33 H Rate Respiratory Rate [ Throughout] Blood Pressure 177/98 177/98 192/87 O2 Sat by Pulse 95 95 82 L Oximetry 06/27/17 06/27/17 06/27/17 01:10 01:20 01:30 Temperature Pulse Rate 117 H 116 H 110 H Pulse Rate [ From Monitor] Pulse Rate [ Left Dorsalis Pedis] Pulse Rate [ Left Radial] Pulse Rate [ Right Dorsalis Pedis] Pulse Rate [ Right Radial] Pulse Rate [ Throughout] Respiratory 30 H 21 18 Rate Respiratory Rate [ Throughout] Blood Pressure 192/87 192/87 192/87 O2 Sat by Pulse 96 93 88 Oximetry 06/27/17 06/27/17 06/27/17 01:40 01:50 02:00 Temperature Pulse Rate 124 H 132 H 126 H Pulse Rate [ From Monitor] Pulse Rate [ Left Dorsalis Pedis] Pulse Rate [ Left Radial] Pulse Rate [ Right Dorsalis Pedis] Pulse Rate [ Right Radial] Pulse Rate [ Throughout] Respiratory 17 20 21 Rate Respiratory Rate [ Throughout] Blood Pressure 192/87 192/87 195/127 O2 Sat by Pulse 90 93 94 Oximetry 06/27/17 06/27/17 06/27/17 02:10 02:20 02:30 Temperature Pulse Rate 123 H 122 H 107 H Pulse Rate [ From Monitor] Pulse Rate [ Left Dorsalis Pedis] Pulse Rate [ Left Radial] Pulse Rate [ Right Dorsalis Pedis] Pulse Rate [ Right Radial] Pulse Rate [ Throughout] Respiratory 20 22 20 Rate Respiratory Rate [ Throughout] Blood Pressure 192/87 192/87 193/99 O2 Sat by Pulse 93 96 94 Oximetry 06/27/17 06/27/17 06/27/17 02:40 02:50 03:00 Temperature Pulse Rate 118 H 88 109 H Pulse Rate [ From Monitor] Pulse Rate [ Left Dorsalis Pedis] Pulse Rate [ Left Radial] Pulse Rate [ Right Dorsalis Pedis] Pulse Rate [ Right Radial] Pulse Rate [ Throughout] Respiratory 24 23 27 H Rate Respiratory Rate [ Throughout] Blood Pressure 207/107 207/107 183/82 O2 Sat by Pulse 97 97 95 Oximetry 06/27/17 06/27/17 06/27/17 03:10 03:18 03:20 Temperature Pulse Rate 107 H 116 H 119 H Pulse Rate [ From Monitor] Pulse Rate [ Left Dorsalis Pedis] Pulse Rate [ Left Radial] Pulse Rate [ Right Dorsalis Pedis] Pulse Rate [ Right Radial] Pulse Rate [ Throughout] Respiratory 29 H 23 Rate Respiratory Rate [ Throughout] Blood Pressure 207/107 208/110 207/107 O2 Sat by Pulse 90 93 Oximetry 06/27/17 06/27/17 06/27/17 03:30 03:40 03:50 Temperature Pulse Rate 91 H 92 H 98 H Pulse Rate [ From Monitor] Pulse Rate [ Left Dorsalis Pedis] Pulse Rate [ Left Radial] Pulse Rate [ Right Dorsalis Pedis] Pulse Rate [ Right Radial] Pulse Rate [ Throughout] Respiratory 17 17 18 Rate Respiratory Rate [ Throughout] Blood Pressure 207/107 207/107 207/107 O2 Sat by Pulse 93 94 93 Oximetry 06/27/17 06/27/17 06/27/17 04:00 04:10 04:20 Temperature 98.3 F Pulse Rate 113 H 101 H 102 H Pulse Rate [ From Monitor] Pulse Rate [ Left Dorsalis Pedis] Pulse Rate [ Left Radial] Pulse Rate [ Right Dorsalis Pedis] Pulse Rate [ Right Radial] Pulse Rate [ Throughout] Respiratory 21 20 19 Rate Respiratory Rate [ Throughout] Blood Pressure 186/88 183/82 183/82 O2 Sat by Pulse 91 94 94 Oximetry 06/27/17 06/27/17 06/27/17 04:30 04:40 04:50 Temperature Pulse Rate 109 H 98 H 122 H Pulse Rate [ From Monitor] Pulse Rate [ Left Dorsalis Pedis] Pulse Rate [ Left Radial] Pulse Rate [ Right Dorsalis Pedis] Pulse Rate [ Right Radial] Pulse Rate [ Throughout] Respiratory 19 16 18 Rate Respiratory Rate [ Throughout] Blood Pressure 164/93 164/93 164/93 O2 Sat by Pulse 94 94 94 Oximetry 06/27/17 06/27/17 06/27/17 05:00 05:10 05:20 Temperature Pulse Rate 106 H 107 H 110 H Pulse Rate [ From Monitor] Pulse Rate [ Left Dorsalis Pedis] Pulse Rate [ Left Radial] Pulse Rate [ Right Dorsalis Pedis] Pulse Rate [ Right Radial] Pulse Rate [ Throughout] Respiratory 19 17 18 Rate Respiratory Rate [ Throughout] Blood Pressure 182/86 182/86 182/86 O2 Sat by Pulse 93 94 94 Oximetry 06/27/17 06/27/17 06/27/17 05:30 05:40 05:50 Temperature Pulse Rate 116 H 108 H 109 H Pulse Rate [ From Monitor] Pulse Rate [ Left Dorsalis Pedis] Pulse Rate [ Left Radial] Pulse Rate [ Right Dorsalis Pedis] Pulse Rate [ Right Radial] Pulse Rate [ Throughout] Respiratory 22 21 20 Rate Respiratory Rate [ Throughout] Blood Pressure 180/96 180/96 180/96 O2 Sat by Pulse 92 94 94 Oximetry 06/27/17 06/27/17 06/27/17 06:00 06:10 06:20 Temperature Pulse Rate 106 H 105 H 118 H Pulse Rate [ From Monitor] Pulse Rate [ Left Dorsalis Pedis] Pulse Rate [ Left Radial] Pulse Rate [ Right Dorsalis Pedis] Pulse Rate [ Right Radial] Pulse Rate [ Throughout] Respiratory 21 17 17 Rate Respiratory Rate [ Throughout] Blood Pressure 182/95 182/95 182/95 O2 Sat by Pulse 91 94 94 Oximetry 06/27/17 06/27/17 06/27/17 06:30 06:40 06:50 Temperature Pulse Rate 117 H 111 H 106 H Pulse Rate [ From Monitor] Pulse Rate [ Left Dorsalis Pedis] Pulse Rate [ Left Radial] Pulse Rate [ Right Dorsalis Pedis] Pulse Rate [ Right Radial] Pulse Rate [ Throughout] Respiratory 19 22 18 Rate Respiratory Rate [ Throughout] Blood Pressure 182/95 182/95 182/95 O2 Sat by Pulse 94 94 94 Oximetry 06/27/17 06/27/17 06/27/17 07:00 07:04 07:10 Temperature Pulse Rate 104 H 120 H Pulse Rate [ From Monitor] Pulse Rate [ Left Dorsalis Pedis] Pulse Rate [ Left Radial] Pulse Rate [ Right Dorsalis Pedis] Pulse Rate [ Right Radial] Pulse Rate [ 110 H Throughout] Respiratory 22 18 Rate Respiratory 20 Rate [ Throughout] Blood Pressure 164/82 164/82 O2 Sat by Pulse 90 96 Oximetry 06/27/17 06/27/17 06/27/17 07:13 07:14 07:20 Temperature Pulse Rate 120 H Pulse Rate [ From Monitor] Pulse Rate [ Left Dorsalis Pedis] Pulse Rate [ Left Radial] Pulse Rate [ Right Dorsalis Pedis] Pulse Rate [ Right Radial] Pulse Rate [ 112 H Throughout] Respiratory 25 H Rate Respiratory 20 Rate [ Throughout] Blood Pressure 164/82 O2 Sat by Pulse 95 92 Oximetry 06/27/17 06/27/17 06/27/17 07:30 07:40 07:50 Temperature Pulse Rate 120 H 106 H 114 H Pulse Rate [ From Monitor] Pulse Rate [ Left Dorsalis Pedis] Pulse Rate [ Left Radial] Pulse Rate [ Right Dorsalis Pedis] Pulse Rate [ Right Radial] Pulse Rate [ Throughout] Respiratory 23 28 H 27 H Rate Respiratory Rate [ Throughout] Blood Pressure 164/82 164/82 164/82 O2 Sat by Pulse 89 90 92 Oximetry 06/27/17 06/27/17 06/27/17 08:00 08:10 08:20 Temperature 98.3 F Pulse Rate 80 96 H 85 Pulse Rate [ From Monitor] Pulse Rate [ Left Dorsalis Pedis] Pulse Rate [ Left Radial] Pulse Rate [ Right Dorsalis Pedis] Pulse Rate [ Right Radial] Pulse Rate [ Throughout] Respiratory 22 22 20 Rate Respiratory Rate [ Throughout] Blood Pressure 164/82 127/65 127/65 O2 Sat by Pulse 92 93 92 Oximetry 06/27/17 06/27/17 06/27/17 08:30 08:40 08:50 Temperature Pulse Rate 86 89 82 Pulse Rate [ From Monitor] Pulse Rate [ Left Dorsalis Pedis] Pulse Rate [ Left Radial] Pulse Rate [ Right Dorsalis Pedis] Pulse Rate [ Right Radial] Pulse Rate [ Throughout] Respiratory 22 22 21 Rate Respiratory Rate [ Throughout] Blood Pressure 127/65 127/65 127/65 O2 Sat by Pulse 94 95 95 Oximetry 06/27/17 06/27/17 06/27/17 09:00 09:10 09:20 Temperature Pulse Rate 83 86 85 Pulse Rate [ From Monitor] Pulse Rate [ Left Dorsalis Pedis] Pulse Rate [ Left Radial] Pulse Rate [ Right Dorsalis Pedis] Pulse Rate [ Right Radial] Pulse Rate [ Throughout] Respiratory 22 20 22 Rate Respiratory Rate [ Throughout] Blood Pressure 130/66 130/66 130/66 O2 Sat by Pulse 94 96 96 Oximetry 06/27/17 10:10 Temperature Pulse Rate Pulse Rate [ From Monitor] Pulse Rate [ Left Dorsalis Pedis] Pulse Rate [ Left Radial] Pulse Rate [ Right Dorsalis Pedis] Pulse Rate [ Right Radial] Pulse Rate [ Throughout] Respiratory Rate Respiratory Rate [ Throughout] Blood Pressure 111/65 O2 Sat by Pulse Oximetry Constitutional: appears uncomfortable, other (chronically ill looking, frail) Eyes: non-icteric ENT: oropharynx moist Neck: supple, no lymphadenopathy, no JVD Effort: mildly labored Ascultation: Bilateral: diminished breath sounds, wheezes Cardiovascular: regular rate and rhythm Gastrointestinal: normoactive bowel sounds, soft, non-tender, non-distended Integumentary: normal Extremities: no cyanosis, no edema, pulses normal Neurologic: normal mental status, non-focal exam Psychiatric: mood appropriate, anxious CBC and BMP: 06/27/17 08:20 06/27/17 08:20 ABG, PT/INR, D-dimer: ABG POC ABG pH 7.391 (7.35-7.45) 06/25/17 12:59 POC ABG pCO2 49.3 (35-45) H 06/25/17 12:59 POC ABG pO2 57 (80-105) L 06/25/17 12:59 POC ABG HCO3 29.9 06/25/17 12:59 POC ABG Total CO2 31 06/25/17 12:59 POC ABG O2 Sat 88 06/25/17 12:59 PT/INR, D-dimer PT 14.3 Sec. (12.2-14.9) 06/25/17 12:45 INR 1.06 (0.87-1.13) 06/25/17 12:45 D-Dimer 1423.50 ng/mlDDU (0-234) H 06/26/17 08:15 Abnormal lab findings: Abnormal Labs 06/25/17 06/25/17 06/25/17 12:10 12:45 12:45 WBC RBC Hgb 17.1 H Hct 53.0 H MCV 107 H MCH 35 H Plt Count 80 L Lymph % (Auto) 9.6 L Coal % (Auto) 10.1 H Lymph # 0.9 L Coal # 0.9 H Seg Neutrophils % 78.1 H D-Dimer POC ABG pCO2 POC ABG pO2 Potassium 3.1 L Chloride 94.6 L Carbon Dioxide Creatinine 0.5 L Glucose 117 H POC Glucose Lactic Acid Direct Bilirubin 0.3 H C-Reactive Protein NT-Pro-B Natriuret Pep 3012 H 06/25/17 06/25/17 06/25/17 12:59 13:04 17:54 WBC RBC Hgb Hct MCV MCH Plt Count Lymph % (Auto) Coal % (Auto) Lymph # Coal # Seg Neutrophils % D-Dimer POC ABG pCO2 49.3 H POC ABG pO2 57 L Potassium Chloride Carbon Dioxide Creatinine Glucose POC Glucose Lactic Acid 3.60 H* 3.10 H* Direct Bilirubin C-Reactive Protein NT-Pro-B Natriuret Pep 06/25/17 06/26/17 06/26/17 20:37 08:15 08:15 WBC RBC Hgb Hct MCV MCH Plt Count Lymph % (Auto) Coal % (Auto) Lymph # Coal # Seg Neutrophils % D-Dimer 1423.50 H POC ABG pCO2 POC ABG pO2 Potassium Chloride Carbon Dioxide Creatinine Glucose POC Glucose Lactic Acid 2.40 H* Direct Bilirubin C-Reactive Protein 6.60 H NT-Pro-B Natriuret Pep 06/26/17 06/27/17 06/27/17 17:28 08:20 08:20 WBC 11.5 H RBC 5.38 H Hgb 18.5 H Hct 56.2 H* MCV 105 H MCH 35 H Plt Count Lymph % (Auto) Coal % (Auto) Lymph # Coal # Seg Neutrophils % D-Dimer POC ABG pCO2 POC ABG pO2 Potassium Chloride 94.6 L Carbon Dioxide 36 H D Creatinine 0.5 L Glucose 166 H POC Glucose 139 H Lactic Acid Direct Bilirubin C-Reactive Protein NT-Pro-B Natriuret Pep
[2017-06-27] MEDS ORDERED: XANAX PO PRN (11:00)
[2017-06-27] MEDS ORDERED: NON-FORMULARY (Xanax Tab 1 MG) PO SCH (12:00)
[2017-06-27] MEDS: cefTRIAXone 2 GM in NACL 0.9% 20 ML IV SCH (14:05)
--- NOTE | 2017-06-27 15:20 | Vascular Lab Report ---
LOWER EXTREMITY VENOUS DUPLEX: REASON FOR EXAM: Pain, hypoxemia, and respiratory failure. COMMENTS ON THE RIGHT: All veins visualized are freely compressible without evidence of internal echogenicity. Flow is spontaneous and phasic throughout. COMMENTS ON THE LEFT: All veins visualized are freely compressible without evidence of internal echogenicity. Flow is spontaneous and phasic throughout. IMPRESSION: No evidence of acute or chronic deep venous thrombosis in either lower extremity.
--- NOTE | 2017-06-27 17:43 | Progress Note ---
Assessment and Plan Assessment and plan: 72 YO Female with COPD, Chronic Respiratory Failure on Home Oxygen, HTN, Nicotine Dependance presents to ED for evaluation. Pt is lethargic and confused and unable to give history, but history given by son who is at bedside during exam and interview. As per son, Pt has experienced confusion and shortness over kat[place] past 2 days with worsening symptoms over the past 8 hours. Pt has become more confused and unable to conduct activities of daily living. No reports of fever, chills, CP, Palpitations, NVD, Trauma, Seizures, Vertigo, loss of bowel/ bladder continence, sore throat, ill contacts, syncope, leg/calf swelling, recent prolonged car/air travel. Pt acknowledges daily continued smoking. Pt seen and evaluated in ED and found to have evidence of sepsis, and acute respiratory failure, and treated with sepsis protocol, and NIPPV. Pt admitted to ICU. DIAGNOSIS Sepsis secondary to viral etiology Acute on chronic hypoxemic respiratory failure COPD with acute exacerbation Tobacco abuse disorder Acute on Chronic Hypoxemic Respiratory failure COPD with Acute exacerbation Metabolic Encephalopathy -Now resolved DM lactic acidosis. Hypokalemia PLAN -continue with current medications -supplemental oxygen -We'll continue to taper steroids. We'll discontinue antibiotics prior to discharge if no further fever. 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 -oxygen safety discussed -smoking cessation counselling done -discharge home with hospice -DVT and GI prophylaxis -[facility]red to the [facility] History Interval history: Patient seen and examined, much more improved this morning, still with underlying shortness of breath but appears to be at [facility] Physical - Constitutional Vitals: Temp Pulse Resp BP Pulse Ox 98.4 F 77 22 106/66 92 06/27/17 12:00 06/27/17 15:00 06/27/17 16:00 06/27/17 15:00 06/27/17 15:00 General appearance: Present: other (moderate distress) Results - Labs CBC & Chem 7: 06/27/17 08:20 06/27/17 08:20 Labs: Laboratory Last Values WBC 11.5 K/mm3 (4.5-11.0) H 06/27/17 08:20 RBC 5.38 M/mm3 (3.65-5.03) H 06/27/17 08:20 Hgb 18.5 gm/dl (10.1-14.3) H 06/27/17 08:20 Hct 56.2 % (30.3-42.9) H* 06/27/17 08:20 MCV 105 fl (79-97) H 06/27/17 08:20 MCH 35 pg (28-32) H 06/27/17 08:20 MCHC 33 % (30-34) 06/27/17 08:20 RDW 14.3 % (13.2-15.2) 06/27/17 08:20 Plt Count 160 K/mm3 (140-440) D 06/27/17 08:20 Lymph % (Auto) 9.6 % (13.4-35.0) L 06/25/17 12:10 [place] % (Auto) 10.1 % (0.0-7.3) H 06/25/17 12:10 Eos % (Auto) 1.7 % (0.0-4.3) 06/25/17 12:10 Baso % (Auto) 0.5 % (0.0-1.8) 06/25/17 12:10 Lymph # 0.9 K/mm3 (1.2-5.4) L 06/25/17 12:10 [place] # 0.9 K/mm3 (0.0-0.8) H 06/25/17 12:10 Eos # 0.2 K/mm3 (0.0-0.4) 06/25/17 12:10 Baso # 0.0 K/mm3 (0.0-0.1) 06/25/17 12:10 Seg Neutrophils % 78.1 % (40.0-70.0) H 06/25/17 12:10 Seg Neutrophils # 7.0 K/mm3 (1.8-7.7) 06/25/17 12:10 PT 14.3 Sec. (12.2-14.9) 06/25/17 12:45 INR 1.06 (0.87-1.13) 06/25/17 12:45 APTT 28.5 Sec. (24.2-36.6) 06/25/17 12:45 D-Dimer 1423.50 ng/mlDDU (0-234) H 06/26/17 08:15 POC ABG pH 7.445 (7.35-7.45) 06/27/17 17:05 POC ABG pCO2 59.2 (35-45) H 06/27/17 17:05 POC ABG pO2 59 (80-105) L 06/27/17 17:05 POC ABG HCO3 40.7 06/27/17 17:05 POC ABG Total CO2 42 06/27/17 17:05 POC ABG O2 Sat 90 06/27/17 17:05 POC ABG Base Excess 17 06/27/17 17:05 FiO2 1.5 % 06/27/17 17:05 Sodium 139 mmol/L (137-145) 06/27/17 08:20 Potassium 4.1 mmol/L (3.6-5.0) 06/27/17 08:20 Chloride 94.6 mmol/L (98-107) L 06/27/17 08:20 Carbon Dioxide 36 mmol/L (22-30) H D 06/27/17 08:20 Anion Gap 13 mmol/L 06/27/17 08:20 BUN 16 mg/dL (7-17) 06/27/17 08:20 Creatinine 0.5 mg/dL (0.7-1.2) L 06/27/17 08:20 Estimated GFR > 60 ml/min 06/27/17 08:20 BUN/Creatinine Ratio 32 % 06/27/17 08:20 Glucose 166 mg/dL (65-100) H 06/27/17 08:20 POC Glucose 139 (70-105) H 06/26/17 17:28 Lactic Acid 2.40 mmol/L (0.7-2.0) H* 06/25/17 20:37 Calcium 9.4 mg/dL (8.4-10.2) 06/27/17 08:20 Magnesium 1.90 mg/dL (1.7-2.3) 06/25/17 12:45 Total Bilirubin 0.80 mg/dL (0.1-1.2) 06/25/17 12:45 Direct Bilirubin 0.3 mg/dL (0-0.2) H 06/25/17 12:45 Indirect Bilirubin 0.5 mg/dL 06/25/17 12:45 AST 21 units/L (5-40) 06/25/17 12:45 ALT 11 units/L (7-56) 06/25/17 12:45 Alkaline Phosphatase 75 units/L (35-129) 06/25/17 12:45 Total Creatine Kinase 99 units/L (30-135) 06/25/17 12:45 CK-MB (CK-2) 2.8 ng/mL (0.0-4.0) 06/25/17 12:45 CK-MB (CK-2) Rel Index 2.8 (0-4) 06/25/17 12:45 Troponin T 0.016 ng/mL (0.00-0.029) 06/25/17 12:45 C-Reactive Protein 6.60 mg/dL (0.00-1.30) H 06/26/17 08:15 NT-Pro-B Natriuret Pep 3012 pg/mL (0-900) H 06/25/17 12:45 Total Protein 6.4 g/dL (6.3-8.2) 06/25/17 12:45 Albumin 3.9 g/dL (3.9-5) 06/25/17 12:45 Albumin/Globulin Ratio 1.6 % 06/25/17 12:45 Urine Color Yellow (Yellow) 06/25/17 15:54 Urine Turbidity Clear (Clear) 06/25/17 15:54 Urine pH 6.0 (5.0-7.0) 06/25/17 15:54 Ur Specific [place] 1.018 (1.003-1.030) 06/25/17 15:54 Urine Protein 30 mg/dl mg/dL (Negative) 06/25/17 15:54 Urine Glucose (UA) Neg mg/dL (Negative) 06/25/17 15:54 Urine Ketones Neg mg/dL (Negative) 06/25/17 15:54 Urine Blood Mod (Negative) 06/25/17 15:54 Urine Nitrite Neg (Negative) 06/25/17 15:54 Urine Bilirubin Neg (Negative) 06/25/17 15:54 Urine Urobilinogen 2.0 mg/dL (<2.0) 06/25/17 15:54 Ur Leukocyte Esterase Neg (Negative) 06/25/17 15:54 Urine WBC (Auto) 3.0 /HPF (0.0-6.0) 06/25/17 15:54 Urine RBC (Auto) 2.0 /HPF (0.0-6.0) 06/25/17 15:54 U Epithel Cells (Auto) < 1.0 /HPF (0-13.0) 06/25/17 15:54 Urine Mucus Few /HPF 06/25/17 15:54 Hepatitis A IgM Ab Non-reactive (NonReactive) 06/26/17 08:15 Hep Bs Antigen Non-reactive (Negative) 06/26/17 08:15 Hep B Core IgM Ab Non-reactive (NonReactive) 06/26/17 08:15 Hepatitis C Antibody Non-reactive (NonReactive) 06/26/17 08:15 Blood Type O POSITIVE 06/25/17 14:35 Antibody Screen Negative 06/25/17 14:35
[2017-06-27] MEDS ORDERED: PRAVACHOL PO SCH (22:00)
[2017-06-27] MEDS: HABITROL TD SCH (22:09)
[2017-06-28] MEDS: ROXICODONE PO PRN (01:12)
[2017-06-28 07:35] VITALS: BP 171/83
[2017-06-28] MEDS: PULMICORT IH SCH (07:39)
[2017-06-28] MEDS: BROVANA NEBU IH SCH (07:39)
[2017-06-28] MEDS: ZITHROMAX 500 MG in NACL 0.9% 250ML 250 ML IV SCH (09:52)
[2017-06-28] MEDS: PEPCID IV SCH (09:53)
[2017-06-28] MEDS: CATAPRES PO SCH (09:53)
--- NOTE | 2017-06-28 10:44 | Discharge Summary ---
Providers - Providers Date of Admission: 06/25/17 14:16 Attending physician: KYLE JOHNSON MD 06/25/17 15:01 Consult to Physician [CONS] Routine Consulting Provider: TISH FINE Reason For Exam: resp failure Place consult to:: CC CONTACT CENTER ASSISTANT Notified:: Y If yes, spoke with:: DR SPENCER Time called:: 16:05 Comment:: WILL INFORM DR Bowman OF [facility] Primary care physician: MARNIE BENITEZ Hospitalization Reason for admission: COPD EXACERBATION Condition: Stable Hospital course: 72 YO Female with COPD, Chronic Respiratory Failure on Home Oxygen, HTN, Nicotine Dependance presents to ED for evaluation. Pt is lethargic and confused and unable to give history, but history given by son who is at bedside during exam and interview. As per son, Pt has experienced confusion and shortness over kat[place] past 2 days with worsening symptoms over the past 8 hours. Pt has become more confused and unable to conduct activities of daily living. No reports of fever, chills, CP, Palpitations, NVD, Trauma, Seizures, Vertigo, loss of bowel/ bladder continence, sore throat, ill contacts, syncope, leg/calf swelling, recent prolonged car/air travel. Pt acknowledges daily continued smoking. Pt seen and evaluated in ED and found to have evidence of sepsis, and acute respiratory failure, and treated with sepsis protocol, and NIPPV. Pt admitted to ICU. She was treated with BiPAP and subsequently antibiotics, cultures were unremarkable, her symptoms improved back to her baseline. It appears the patient has had significant sick contacts with family members having the flu. she understands that she has endstage COPD, she kept insisting she will like to go for a smoke. she will be discharged with home hospice. DIAGNOSIS Sepsis secondary to viral etiology Acute on chronic hypoxemic respiratory failure COPD with acute exacerbation Tobacco abuse disorder Acute on Chronic Hypoxemic Respiratory failure COPD with Acute exacerbation Metabolic Encephalopathy -Now resolved DM lactic acidosis. Hypokalemia Disposition: DC-50 TO HOSPICE (HOME) Time spent for discharge: 35 MINS Core Measure Documentation - Palliative Care Palliative Care/ Comfort Measures: Hospice Care - Core Measures Any of the following diagnoses?: none - VTE Discharge Requirements Deep Vein Thrombosis/Pulmonary Embolism Present on Admission: No Exam - Physical Exam Narrative exam: General appearance: Present: other MILD RESPIRATORY DISTRESS- BASELINE - EENT Eyes: Present: PERRL, EOM intact ENT: hearing intact, clear oral mucosa - Neck Neck: Present: supple, normal ROM - Respiratory Respiratory effort: labored, pursed lips Respiratory: bilateral: diminished, - Cardiovascular Rhythm: regular Heart Sounds: Present: S1 & S2 - Extremities Extremities: no ischemia, pulses intact, Full ROM Peripheral Pulses: within normal limits - Abdominal General gastrointestinal: soft, non-tender, non-distended - Integumentary Integumentary: Present: clear, warm, dry - Psychiatric Psychiatric: appropriate mood/affect, other (anxious) - Neurologic Neurologic: CNII-XII intact - Constitutional Vitals: Temp Pulse Resp BP Pulse Ox 97.6 F 78 18 171/83 92 06/28/17 07:29 06/28/17 08:06 06/28/17 08:06 06/28/17 07:29 06/28/17 07:54 Plan Activity: advance as tolerated, fall precautions Diet: low cholesterol Special Instructions: record daily weights, record daily BP diary, home hospice Follow up with: MARNIE BENITEZ MD [Primary Care Provider] - 3-5 Days Prescriptions: Nicotine [Habitrol] 14 mg TD QDAY@2200 #1 patch Prednisone [predniSONE 10 mg (6-Day Pack, 21 Tabs)] 10 mg PO .TAPER #1 tab.ds.pk
== END 2017-06-28 12:37 | disposition hospice, home (50) | DRG 871 ==
LOC: ED 11:43 → CC1 14:16 → 3A 06-27 15:55
PROVIDERS: ADMIT Internal Medicine; ATTEND Internal Medicine
PROC: 5A09357 Assistance with Respiratory Ventilation, Less than 24 Consecutive Hours, Continuous Positive Airway Pressure (ICD-10-PCS; principal; 2017-06-25)
PROC: 3E0234Z Introduction of Serum, Toxoid and Vaccine into Muscle, Percutaneous Approach (ICD-10-PCS; 2017-06-26)
DX: A41.9 Sepsis, unspecified organism (principal); J18.9 Pneumonia, unspecified organism; G93.41 Metabolic encephalopathy; J96.21 Acute and chronic respiratory failure with hypoxia; J44.1 Chronic obstructive pulmonary disease with (acute) exacerbation; J44.0 Chronic obstructive pulmonary disease with (acute) lower respiratory infection; J20.8 Acute bronchitis due to other specified organisms; E87.6 Hypokalemia; I10 Essential (primary) hypertension; F17.210 Nicotine dependence, cigarettes, uncomplicated; F41.9 Anxiety disorder, unspecified; D75.1 Secondary polycythemia; Z99.81 Dependence on supplemental oxygen; Z90.49 Acquired absence of other specified parts of digestive tract; Z82.49 Family history of ischemic heart disease and other diseases of the circulatory system; Z90.710 Acquired absence of both cervix and uterus; Z88.8 Allergy status to other drugs, medicaments and biological substances; Z79.899 Other long term (current) drug therapy; Z71.6 Tobacco abuse counseling; Z23 Encounter for immunization
CPT/HCPCS: 36415; 71010; 71275; 80048; 80074; 81001; 82140; 82550; 82553; 82803; 82962; 83735; 83880; 84132; 84484; 85025; 85027; 85379; 85610; 85730; 86140; 86850; 86900; 86901; 87040; 87076; 87086; 87186; 90686; 93005; 93010; 93306; 93970; 94640; 94660; 94760; 96365; 99406; A9270-GY; J0456; J0696; J1940; J1956; J2920; J3475; J3480; J7030; J7050; Q9967